=== PATIENT | female | born 1990 | race Caucasian/White ===

== ENCOUNTER 2016-04-26 18:21 | Emergency (ER) | payer OTHER ==
[~2016-04-26] VITALS: Ht 170.1 cm; Wt 99.8 kg
[~2016-04-26 18:21] MED LIST: ALLEGRA-D 24 H1 EACH PO; AMOXICILLIN500 M2 PO; ATROVENT H0.017 MG/A INH; CIPRO250 MG PO; CIPRO500 MG PO; CIPROFLOXACIN500 MG PO; CLINDAMYCIN HC300 MG PO; DIFLUCAN150 MG PO; FLONASE ALLERG9.9 ML NAS; HYDROCODONE BIT1 T11 PO; MEDROL DOSEPAK4 MG PO; MOTRIN IB200 M1 PO; MOTRIN800 MG PO; Motrin,Rufen800 MG PO; NKHM; NORCO 5-325 TA1 EACH PO; OMNICEF300 MG PO; PEN-VK500 MG PO; PHENERGAN25 M1 PO; PRENATAL1 TA1 PO; PYRIDIUM200 MG PO; TYLENOL WITH CO1 TA1 PO; ULTRAM50 MG PO; VIBRAMYCIN100 MG PO; VYVANSE40 MG PO; ZITHROMAX Z PA250 MG PO; ZYRTEC10 M2 PO; ZYRTEC10 MG PO; Zofran4 MG PO
[2016-04-26 18:56] LABS: BASO % 0.2 % (0.0-1.0); EOS # 0.1 10*3/uL (0.0-0.4); EOS % 0.5 % (1.0-4.0); HEMATOCRIT 40.9 % (37.0-47.0); HEMOGLOBIN 14.3 g/dl (12.0-16.0); IG # 0.1 10*3/uL (0.0-0.1); LYMPH # 3.3 10*3/uL (1.3-4.4); LYMPH % 18.7 % (27.0-41.0); MEAN CELL VOLUME 88.9 fl (81.0-99.0); MEAN CORPUSCULAR HGB 31.1 pg (27.0-31.0); MONO # 0.9 10*3/uL (0.1-1.0); MONO % 5.2 % (3.0-9.0); NEUT # 13.3 10*3/uL (2.3-7.9); PLATELET COUNT AUTOMATED 273 10*3/uL (130-400); RED CELL DISTRI WIDTH 11.9 % (0-14.5); WHITE BLOOD COUNT 17.7 10*3/uL (4.8-10.8)
[2016-04-26 19:12] LABS: ALBUMIN 4.2 gm/dl (3.1-4.5); ALKALINE PHOSPHATASE 63 U/L (45-117); BILIRUBIN, TOTAL 0.5 mg/dl (0.2-1.0); BUN 13 mg/dl (7-24); CARBON DIOXIDE 19 mmol/L (21-32); CHLORIDE 102 mmol/L (98-107); EST GLOM FILT AFRICAN AMERICAN > 60 ml/min; GLUCOSE 134 mg/dL (65-99); POTASSIUM 3.2 mmol/L (3.5-5.1); SGOT/AST 28 IU/L (3-35); SGPT/ALT 54 U/L (12-78); SODIUM 139 mmol/L (136-145); TOTAL PROTEIN 7.9 gm/dL (6.4-8.2)
[2016-04-26 20:12] LABS: BILIRUBIN 1+ (NEGATIVE); BLOOD 3+ (NEGATIVE); CLARITY CLOUDY (CLEAR); COLOR YELLOW (YELLOW); GLUCOSE NEGATIVE (NEGATIVE); KETONE TRACE (NEGATIVE); LEUKO ESTERASE NEGATIVE (NEGATIVE); NITRITE NEGATIVE (NEGATIVE); PROTEIN 2+ (NEGATIVE); SPECIFIC GRAVITY >= 1.030 (1.005-1.030)
[2016-04-26 20:29] LABS: BACTERIA 1+; RBC TNTC rbc/hpf (0-2); URINE REFLEX COMMENT YES (NO)
[2016-04-26] MEDS ORDERED: PERCOCET 325 MG1 TA2 PO (21:18)
[2016-04-26] MEDS ORDERED: CIPRO250 MG PO (21:18)
[2016-04-26] MEDS ORDERED: PREDNISONE20 M1 PO (21:18)
[2016-04-26] MEDS ORDERED: HYDROCODONE BIT1 T11 PO (21:29)
== END 2016-04-26 21:55 | disposition home or self-care (01) ==
LOC: ED 18:21
PROVIDERS: Nurse Practitioner Family
DX: N20.1 Calculus of ureter (principal); D72.829 Elevated white blood cell count, unspecified; F17.200 Nicotine dependence, unspecified, uncomplicated; Z98.890 Other specified postprocedural states; Z88.1 Allergy status to other antibiotic agents; Z88.8 Allergy status to other drugs, medicaments and biological substances

== ENCOUNTER 2016-08-01 20:53 | Emergency (ER) | payer OTHER ==
[~2016-08-01] VITALS: Ht 172.7 cm; Wt 99.8 kg
[~2016-08-01 20:53] MED LIST changes: +PERCOCET 325 MG1 TA2 PO; +PREDNISONE20 M1 PO
[2016-08-01] MEDS ORDERED: ALPRAZOLAM0.5 M3 PO (21:33)
[2016-08-01] MEDS ORDERED: VYVANSE50 MG PO (21:34)
[2016-08-01] MEDS ORDERED: LIDEX 0.05% CRE15 GM T (21:42)
== END 2016-08-01 21:36 | disposition home or self-care (01) ==
LOC: ED 20:53
DX: S40.862A Insect bite (nonvenomous) of left upper arm, initial encounter (principal); S40.861A Insect bite (nonvenomous) of right upper arm, initial encounter; S20.96XA Insect bite (nonvenomous) of unspecified parts of thorax, initial encounter; Z88.1 Allergy status to other antibiotic agents; Z88.2 Allergy status to sulfonamides; F17.200 Nicotine dependence, unspecified, uncomplicated; W57.XXXA Bitten or stung by nonvenomous insect and other nonvenomous arthropods, initial encounter; Y93.89 Activity, other specified; Y92.9 Unspecified place or not applicable; Y99.9 Unspecified external cause status

== ENCOUNTER 2017-03-06 15:25 | Emergency (ER) | payer OTHER ==
[~2017-03-06] VITALS: Ht 170.1 cm; Wt 95.3 kg
[~2017-03-06 15:25] MED LIST changes: +ALPRAZOLAM0.5 M3 PO; +LIDEX 0.05% CRE15 GM T; +VYVANSE50 MG PO
[2017-03-06] MEDS ORDERED: ZITHROMAX250 MG PO (16:09)
[2017-03-06] MEDS ORDERED: DELTASONE20 M1 PO (16:09)
== END 2017-03-06 16:08 | disposition home or self-care (01) ==
LOC: ED 15:25
DX: J40 Bronchitis, not specified as acute or chronic (principal); Z98.890 Other specified postprocedural states; Z79.899 Other long term (current) drug therapy; Z88.1 Allergy status to other antibiotic agents; Z88.8 Allergy status to other drugs, medicaments and biological substances

== ENCOUNTER 2019-06-08 17:55 | Emergency (ER) | payer OTHER ==
[~2019-06-08] VITALS: Ht 170.1 cm; Wt 94.3 kg
[~2019-06-08 17:55] MED LIST changes: +DELTASONE20 M1 PO; +ZITHROMAX250 MG PO
[2019-06-08 19:09] LABS: BASO # 0.1 10*3/uL (0.0-0.1); BASO % 0.3 % (0.0-1.0); EOS # 0.1 10*3/uL (0.0-0.4); EOS % 0.5 % (1.0-4.0); HEMATOCRIT 42.4 % (37.0-47.0); HEMOGLOBIN 14.1 g/dl (12.0-16.0); LYMPH # 2.2 10*3/uL (1.3-4.4); LYMPH % 12.8 % (27.0-41.0); MEAN CELL VOLUME 95.7 fl (81.0-99.0); MEAN CORPUSCULAR HGB 31.8 pg (27.0-31.0); MEAN CORPUSCULAR HGB CONC 33.3 g/dl (33.0-37.0); MEAN PLATELET VOLUME 10.4 fl (9.6-12.3); MONO # 0.8 10*3/uL (0.1-1.0); MONO % 4.8 % (3.0-9.0); NEUT # 13.9 10*3/uL (2.3-7.9); NEUT % 81.2 % (47.0-73.0); PLATELET COUNT AUTOMATED 226 10*3/uL (130-400); RED BLOOD COUNT 4.43 10*6/uL (4.10-5.10); RED CELL DISTRI WIDTH 11.7 % (0-14.5); WHITE BLOOD COUNT 17.1 10*3/uL (4.8-10.8)
[2019-06-08 19:21] LABS: ACT PARTIAL THROMBO TIME 26.5 SECONDS (20.0-32.1)
[2019-06-08 19:24] LABS: ALKALINE PHOSPHATASE 62 U/L (45-117); BUN 10 mg/dl (7-24); CHLORIDE 104 mmol/L (98-107); CREATININE 0.88 mg/dL (0.55-1.02); LIPASE 178 U/L (73-393); POTASSIUM 3.7 mmol/L (3.5-5.1); SGOT/AST 10 IU/L (3-35); SGPT/ALT 24 U/L (12-78); SODIUM 138 mmol/L (136-145); TOTAL PROTEIN 7.7 gm/dL (6.4-8.2); TROPONIN I < 0.015 ng/ml (<0.045)
[2019-06-08 19:47] LABS: BILIRUBIN NEGATIVE (NEGATIVE); BLOOD NEGATIVE (NEGATIVE); CLARITY CLOUDY (CLEAR); COLOR YELLOW (YELLOW); GLUCOSE NEGATIVE (NEGATIVE); KETONE TRACE (NEGATIVE); NITRITE NEGATIVE (NEGATIVE); PH 7.5 (5.0-9.0); SPECIFIC GRAVITY 1.015 (1.005-1.030); UROBILINOGEN 0.2 E.U./dl (0.2-1.0)
[2019-06-08 19:48] LABS: LEUKO ESTERASE 2+ (NEGATIVE)
[2019-06-08 20:07] LABS: RBC 0-2 rbc/hpf (0-2); WBC TNTC wbc/hpf (0-5)
[2019-06-08 20:08] LABS: BACTERIA 2+
[2019-06-08 20:32] LABS: URINE AMPHETAMINES < 1000 (1000ng/ml); URINE BARBITURATES < 200 (200ng/ml); URINE BENZODIAZEPINES > 200 (200ng/ml); URINE CANNABINOIDS (THC) > 50 (50ng/ml); URINE COCAINE < 300 (300ng/ml); URINE METHADONE < 300 (300ng/ml); URINE OPIATES < 300 (300ng/ml)
[2019-06-08 20:36] LABS: URINE PHENCYCLIDINE < 25 (25ng/ml)
[2019-06-08] MEDS ORDERED: CIPRO500 MG PO (21:03)
== END 2019-06-08 21:25 | disposition home or self-care (01) ==
LOC: ED 17:55
PROVIDERS: Physician Assistant
DX: N39.0 Urinary tract infection, site not specified (principal); R07.9 Chest pain, unspecified; Z88.2 Allergy status to sulfonamides; Z88.8 Allergy status to other drugs, medicaments and biological substances

== ENCOUNTER 2019-06-12 04:05 | Emergency (ER) | payer OTHER ==
[~2019-06-12] VITALS: Ht 170.1 cm; Wt 93.0 kg
[2019-06-12 04:35] LABS: BASO % 0.3 % (0.0-1.0); EOS # 0.1 10*3/uL (0.0-0.4); HEMATOCRIT 38.4 % (37.0-47.0); LYMPH # 2.5 10*3/uL (1.3-4.4); MEAN CELL VOLUME 94.3 fl (81.0-99.0); MEAN CORPUSCULAR HGB 31.9 pg (27.0-31.0); MEAN CORPUSCULAR HGB CONC 33.9 g/dl (33.0-37.0); MEAN PLATELET VOLUME 10.3 fl (9.6-12.3); MONO # 0.9 10*3/uL (0.1-1.0); MONO % 5.9 % (3.0-9.0); NEUT % 75.5 % (47.0-73.0); PLATELET COUNT AUTOMATED 240 10*3/uL (130-400); RED BLOOD COUNT 4.07 10*6/uL (4.10-5.10); RED CELL DISTRI WIDTH 11.6 % (0-14.5); WHITE BLOOD COUNT 14.5 10*3/uL (4.8-10.8)
[2019-06-12 04:47] LABS: ACT PARTIAL THROMBO TIME 28.2 SECONDS (20.0-32.1)
[2019-06-12 04:52] LABS: ALBUMIN 3.8 gm/dl (3.1-4.5); ALKALINE PHOSPHATASE 61 U/L (45-117); BUN 8 mg/dl (7-24); CHLORIDE 105 mmol/L (98-107); POTASSIUM 3.8 mmol/L (3.5-5.1); SGOT/AST 10 IU/L (3-35); SGPT/ALT 21 U/L (12-78); SODIUM 139 mmol/L (136-145); TOTAL PROTEIN 7.6 gm/dL (6.4-8.2)
[2019-06-12 05:02] LABS: TROPONIN I < 0.015 ng/ml (<0.045)
== END 2019-06-12 06:21 | disposition home or self-care (01) ==
LOC: ED 04:05
PROVIDERS: Emergency Medicine
DX: R07.9 Chest pain, unspecified (principal); R06.02 Shortness of breath; F41.9 Anxiety disorder, unspecified; R06.4 Hyperventilation; F17.210 Nicotine dependence, cigarettes, uncomplicated; Z88.2 Allergy status to sulfonamides

== ENCOUNTER 2019-12-06 21:09 | Emergency (ER) | payer OTHER ==
[~2019-12-06] VITALS: Wt 90.7 kg
[2019-12-06 22:01] LABS: BASO # 0.1 10*3/uL (0.0-0.1); BASO % 0.5 % (0.0-1.0); EOS # 0.3 10*3/uL (0.0-0.4); EOS % 2.4 % (1.0-4.0); HEMATOCRIT 37.4 % (37.0-47.0); LYMPH # 3.8 10*3/uL (1.3-4.4); LYMPH % 36.1 % (27.0-41.0); MEAN CELL VOLUME 96.1 fl (81.0-99.0); MEAN CORPUSCULAR HGB 32.6 pg (27.0-31.0); MEAN PLATELET VOLUME 10.1 fl (9.6-12.3); MONO # 0.7 10*3/uL (0.1-1.0); MONO % 6.7 % (3.0-9.0); NEUT # 5.8 10*3/uL (2.3-7.9); NEUT % 54.1 % (47.0-73.0); PLATELET COUNT AUTOMATED 233 10*3/uL (130-400); RED BLOOD COUNT 3.89 10*6/uL (4.10-5.10); RED CELL DISTRI WIDTH 12.4 % (0-14.5); WHITE BLOOD COUNT 10.6 10*3/uL (4.8-10.8)
[2019-12-06 22:18] LABS: ALBUMIN 3.6 gm/dl (3.1-4.5); ALKALINE PHOSPHATASE 57 U/L (45-117); BUN 11 mg/dl (7-24); CHLORIDE 106 mmol/L (98-107); CREATININE 1.03 mg/dL (0.55-1.02); POTASSIUM 3.8 mmol/L (3.5-5.1); SGOT/AST 19 IU/L (3-35); SGPT/ALT 24 U/L (12-78); SODIUM 138 mmol/L (136-145); TOTAL PROTEIN 8.1 gm/dL (6.4-8.2)
[2019-12-06 22:22] LABS: BETA-HCG, QUANT < 1.0 mIU/mL (1-3)
[2019-12-07 00:03] LABS: BILIRUBIN NEGATIVE (NEGATIVE); BLOOD 3+ (NEGATIVE); CLARITY CLOUDY (CLEAR); COLOR YELLOW (YELLOW); GLUCOSE NEGATIVE (NEGATIVE); KETONE NEGATIVE (NEGATIVE); LEUKO ESTERASE TRACE (NEGATIVE); NITRITE NEGATIVE (NEGATIVE); UROBILINOGEN 0.2 E.U./dl (0.2-1.0)
[2019-12-07 00:11] LABS: RBC 51-100 rbc/hpf (0-2)
[2019-12-07 00:12] LABS: BACTERIA 1+
== END 2019-12-07 00:37 | disposition home or self-care (01) ==
LOC: ED 21:09
PROVIDERS: Nurse Practitioner Family
DX: N93.9 Abnormal uterine and vaginal bleeding, unspecified (principal); N94.10 Unspecified dyspareunia; Z88.2 Allergy status to sulfonamides

== ENCOUNTER → 2019-12-06 | Emergency (ER) | payer OTHER ==
[~2019-12-06] VITALS: Wt 95.3 kg
== END ==
LOC: ED 18:47
DX: N93.9 Abnormal uterine and vaginal bleeding, unspecified (principal); Z53.21 Procedure and treatment not carried out due to patient leaving prior to being seen by health care provider

== ENCOUNTER 2020-03-18 19:10 | Emergency (ER) | payer OTHER ==
[~2020-03-18] VITALS: Wt 88.5 kg
[2020-03-18] MEDS ORDERED: IBUPROFEN600 MG PO (20:23)
[2020-03-18] MEDS ORDERED: AMOXICILLIN500 M2 PO (20:23)
== END 2020-03-18 21:00 | disposition home or self-care (01) ==
LOC: ED 19:10
DX: K02.9 Dental caries, unspecified (principal); Z88.2 Allergy status to sulfonamides; Z88.8 Allergy status to other drugs, medicaments and biological substances; Z79.899 Other long term (current) drug therapy

== ENCOUNTER 2020-03-23 21:53 | Emergency (ER) | payer OTHER ==
[~2020-03-23] VITALS: Ht 170.1 cm; Wt 88.5 kg
[~2020-03-23 21:53] MED LIST changes: +IBUPROFEN600 MG PO
[2020-03-23 23:01] LABS: BASO % 0.2 % (0.0-1.0); EOS # 0.2 10*3/uL (0.0-0.4); EOS % 1.6 % (1.0-4.0); HEMATOCRIT 39.1 % (37.0-47.0); LYMPH # 2.9 10*3/uL (1.3-4.4); MEAN CELL VOLUME 93.8 fl (81.0-99.0); MEAN CORPUSCULAR HGB 31.2 pg (27.0-31.0); MEAN CORPUSCULAR HGB CONC 33.2 g/dl (33.0-37.0); MEAN PLATELET VOLUME 10.1 fl (9.6-12.3); MONO # 0.8 10*3/uL (0.1-1.0); MONO % 6.6 % (3.0-9.0); NEUT # 8.7 10*3/uL (2.3-7.9); NEUT % 68.3 % (47.0-73.0); PLATELET COUNT AUTOMATED 245 10*3/uL (130-400); RED BLOOD COUNT 4.17 10*6/uL (4.10-5.10); RED CELL DISTRI WIDTH 12.1 % (0-14.5); WHITE BLOOD COUNT 12.7 10*3/uL (4.8-10.8)
[2020-03-23 23:18] LABS: ALBUMIN 3.7 gm/dl (3.1-4.5); ALKALINE PHOSPHATASE 53 U/L (45-117); BUN 10 mg/dl (7-24); CHLORIDE 105 mmol/L (98-107); CREATININE 0.86 mg/dL (0.55-1.02); POTASSIUM 3.8 mmol/L (3.5-5.1); SGOT/AST 18 IU/L (3-35); SGPT/ALT 26 U/L (12-78); SODIUM 137 mmol/L (136-145); TOTAL PROTEIN 7.6 gm/dL (6.4-8.2)
[2020-03-23 23:25] LABS: TROPONIN I < 0.015 ng/ml (<0.045)
[2020-03-24] MEDS ORDERED: AUGMENTIN 875875 MG PO (00:13)
== END 2020-03-24 00:36 | disposition home or self-care (01) ==
LOC: ED 21:53
PROVIDERS: Nurse Practitioner
DX: H66.92 Otitis media, unspecified, left ear (principal); Z20.828 Contact with and (suspected) exposure to other viral communicable diseases; J32.9 Chronic sinusitis, unspecified; Z88.2 Allergy status to sulfonamides

== ENCOUNTER 2020-05-15 16:04 | Emergency (ER) | payer OTHER ==
[~2020-05-15] VITALS: Ht 170.1 cm; Wt 88.5 kg
[~2020-05-15 16:04] MED LIST changes: +AUGMENTIN 875875 MG PO
[2020-05-15] MEDS ORDERED: MUCINEX DM 30/61 TAB PO (17:43)
== END 2020-05-15 17:44 | disposition home or self-care (01) ==
LOC: ED 16:04
DX: J06.9 Acute upper respiratory infection, unspecified (principal); Z20.828 Contact with and (suspected) exposure to other viral communicable diseases; Z88.2 Allergy status to sulfonamides

== ENCOUNTER 2020-06-29 21:24 | Emergency (ER) | payer OTHER ==
[~2020-06-29] VITALS: Ht 170.1 cm; Wt 89.8 kg
[~2020-06-29 21:24] MED LIST changes: +MUCINEX DM 30/61 TAB PO
[2020-06-29] MEDS ORDERED: AUGMENTIN 875875 MG PO (22:22)
[2020-06-29] MEDS ORDERED: FLONASE ALLERG9.9 ML NAS (22:22)
== END 2020-06-29 23:01 | disposition home or self-care (01) ==
LOC: ED 21:24
DX: J01.90 Acute sinusitis, unspecified (principal); B96.89 Other specified bacterial agents as the cause of diseases classified elsewhere; F17.200 Nicotine dependence, unspecified, uncomplicated; Z88.2 Allergy status to sulfonamides; Z88.8 Allergy status to other drugs, medicaments and biological substances; Z98.890 Other specified postprocedural states